=== PATIENT | male | born 1960 | race Caucasian/White ===

== ENCOUNTER 2016-07-09 12:46 | Emergency (ER) | payer OTHER ==
[2016-07-09 12:53] VITALS: BP 136/71; PULSE 95; TEMP 98.2; BMI 26.6
--- NOTE | 2016-07-09 13:02 | PDOC ---
History of Present Illness - General Chief Complaint: Pain Stated Complaint: RT ARM PAIN Time Seen by Provider: 07/09/16 12:54 History Source: Patient Exam Limitations: No Limitations - History of Present Illness Initial Comments: CHIEF COMPLAINT: 55 y/o afebrile male with PMH IDDM c/o right elbow pain x 1 month. HISTORY OF PRESENT ILLNESS: The patient denies trauma to the area or fall. He denies all other complaints. He hasn't taken anything for pain. Vital signs on arrival are within normal limits. REVIEW OF SYSTEMS: GENERAL/CONSTITUTIONAL: No fever/chills. No weakness. No weight change. HEAD, EYES, EARS, NOSE AND THROAT: No change in vision. No ear pain or discharge. No sore throat. MUSCULOSKELETAL: +right elbow pain. No neck or back pain. SKIN: No rash or easy bruising. NEUROLOGIC: No headache, vertigo, loss of consciousness, or loss of sensation. PHYSICAL EXAM: VITAL_SIGNS: within normal limits GENERAL_APPEARANCE: alert, cooperative, no obvious discomfort. MENTAL_STATUS: speech clear, oriented X 3, responds appropriately to questions. NEURO: motor intact and sensory intact in injured extremity. EXTREMITIES: right elbow, forearm and upper arm without erythema, edema, warmth or streaking. TTP of lateral epicondyle of right elbow. Full flexion, extension, pronation and supination of affected extremity. SKIN: warm, dry, good color. Past History - Past Medical History Allergies/Adverse Reactions: Allergies Allergy/AdvReac Type Severity Reaction Status Date / Time No Known Allergies Allergy Verified 06/03/15 12:04 Home Medications: Ambulatory Orders Insulin Detemir [Levemir Flextouch] 100 unit SQ ASDIR 06/03/15 Sitagliptin Phos/Metformin HCl [Janumet 50-1,000 mg Tablet] 1 each PO DAILY Ibuprofen [Motrin -] 600 mg PO Q6H #30 tablet 07/09/16 Diabetes: Yes Hypercholesterolemia: Yes - Psycho/Social/Smoking Cessation Hx Anxiety: No Suicidal Ideation: No Smoking History: Never smoked Have you smoked in the past 12 months: No Information on smoking cessation initiated: No Hx Alcohol Use: No Drug/Substance Use Hx: No Substance Use Type: None *Physical Exam - Vital Signs Last Vital Signs Temp Pulse Resp BP Pulse Ox 98.2 F 95 H 18 136/71 100 07/09/16 12:52 07/09/16 12:52 07/09/16 12:52 07/09/16 12:52 07/09/16 12:52 Medical Decision Making - Medical Decision Making A/P: 55 y/o male with right epicondylitis. Plan is as follows: 1. xray right elbow 2. PO motrin Xray right elbow IMPRESSION: No evidence of fracture or dislocation. No fat pads noted. Large olecranon spur. Pt with tennis elbow. Will give RICE instructions and suggested Motrin for pain with food. Will give referral to ortho for further follow up. The patient verbalizes understanding of all instructions, has no further questions and is awaiting discharge. *DC/Admit/Observation/Transfer Diagnosis at time of Disposition: Lateral epicondylitis of elbow Qualifiers: Laterality: right Qualified Code(s): M77.11 - Lateral epicondylitis, right elbow - Discharge Dispostion Disposition: HOME Condition at time of disposition: Good - Referrals Referrals: Luther Lopez MD [Staff Physician] - - Patient Instructions Printed Discharge Instructions: DI for Lateral Epicondylitis (Tennis Elbow), How To Perform RICE (Rest, Ice, Compress, Elevate) Additional Instructions: Discharge Instructions: -Follow RICE instructions -Take Motrin every 6 hours for pain -Avoid repetitive movements with your arms -Follow up with Dr. Lopez within 2 weeks -Return to the ER with any worsening or concerning symptoms Print Language: GEORGI[place]
[2016-07-09] MEDS ORDERED: IBUPROFEN 600 MG TABLET (FP) PO ONE ×2 (13:24→13:34)
== END 2016-07-09 13:59 | disposition home or self-care (01) ==
LOC: JERFT 12:46
DX: M77.11 Lateral epicondylitis, right elbow (principal); E11.9 Type 2 diabetes mellitus without complications; Z79.4 Long term (current) use of insulin; Z79.84 Long term (current) use of oral hypoglycemic drugs; E78.00 Pure hypercholesterolemia, unspecified
CPT/HCPCS: 73070-TC-RT; 99281-25